=== PATIENT | male | born 1960 | race Caucasian/White ===

== ENCOUNTER 2018-08-23 07:51 | Emergency (ER) | payer OTHER ==
[~2018-08-23] VITALS: Ht 180.3 cm; Wt 88.5 kg
--- NOTE | 2018-08-23 08:00 | NUR ---
PT A/OX4, PRESENTS TO THE ER C/O DIZZINESS. PT REPORTS HX OF MIGRAINES AND HIS MIGRAINE SYMPTOMS STARTED THIS AM. PT REPORTS NUMBNESS/TINGLING SENSATINO TO THE FACE. NO FACIAL DROOP NOTED, EQUAL SMILE. 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 VSS. PT DENIES PAIN, C/P, SOB, N/V/D.
--- NOTE | 2018-08-23 08:04 | NUR ---
CHET GOODWIN AT BEDSIDE FOR MSE.
[2018-08-23] MEDS ORDERED: SUMATRIPTAN SUCCINATE 50 MG TABLET PO ONE (08:15)
[2018-08-23] MEDS ORDERED: SUMATRIPTAN SUCCINATE 50 MG TABLET ONE (08:16)
[2018-08-23] MEDS ORDERED: KETOROLAC TROMETHAMINE 30 MG INJ IVP ONE (08:30)
[2018-08-23] MEDS ORDERED: IV NORMAL SALINE 500 ML BAG IV ONE (08:30)
[2018-08-23] MEDS ORDERED: METOCLOPRAMIDE HCL 10 MG/2 ML VIAL IV ONE (08:30)
[2018-08-23] MEDS ORDERED: METOCLOPRAMIDE HCL 10 MG/2 ML VIAL ONE (08:31)
[2018-08-23] MEDS ORDERED: KETOROLAC TROMETHAMINE 30 MG INJ ONE (08:31)
--- NOTE | 2018-08-23 09:11 | NUR ---
DPatient discharged to home in stable conditon. Written and verbal after care instructions given. Patient verbalizes understanding of instructions. PT D/C W/ PRESCRIPTION. ALL BELONGINGS W/ PT. PT SELF-AMBULATED W/O DIFFICULTY. 20G IV ACCESS IN RAC REMOVED PRIOR TO D/C - INNER CANNULA INTACT.
[2018-08-23 09:12] VITALS: BP 144/80
== END 2018-08-23 09:13 | disposition home or self-care (01) ==
LOC: ER 07:51
DX: G43.909 Migraine, unspecified, not intractable, without status migrainosus (principal); R20.2 Paresthesia of skin
CPT/HCPCS: 96374; 96375; 99283; J1885; J2765; A4663; J7030; J7040

== ENCOUNTER 2018-10-13 07:30 | Emergency (ER) | payer OTHER ==
[~2018-10-13] VITALS: Ht 180.3 cm; Wt 88.5 kg
[2018-10-13] MEDS ORDERED: IV NORMAL SALINE 1000 ML BAG IV ONE (08:00)
[2018-10-13] MEDS ORDERED: METOCLOPRAMIDE HCL 10 MG/2 ML VIAL IV ONE (08:00)
[2018-10-13] MEDS ORDERED: diphenhydrAMINE 50 MG/1 ML VIAL IV ONE (08:00)
[2018-10-13] MEDS ORDERED: KETOROLAC TROMETHAMINE 30 MG INJ IVP ONE (08:00)
[2018-10-13] MEDS ORDERED: METOCLOPRAMIDE HCL 10 MG/2 ML VIAL ONE (08:10)
[2018-10-13] MEDS ORDERED: KETOROLAC TROMETHAMINE 30 MG INJ ONE (08:10)
[2018-10-13] MEDS ORDERED: diphenhydrAMINE 50 MG/1 ML VIAL ONE (08:10)
--- NOTE | 2018-10-13 11:24 | NUR ---
pt was evaluated by dr dee. pt was d/c'd to home. d/c instructions given to the pt.
[2018-10-13 11:27] VITALS: BP 132/77
== END 2018-10-13 11:28 | disposition home or self-care (01) ==
LOC: ER 07:30
DX: G43.909 Migraine, unspecified, not intractable, without status migrainosus (principal); R20.2 Paresthesia of skin
CPT/HCPCS: 96374; 96375; 99283; J1200; J1885; J2765; A4663; J7030